=== PATIENT | female | born 1960 | race Caucasian/White ===

== ENCOUNTER 2016-06-15 12:58 | Day surgery (SDC) | payer OTHER ==
[2016-06-15] MEDS ORDERED: methylPREDNISolone SOD SUCC 125 MG/2 ML VIAL IVP ONE (13:08)
[2016-06-15] MEDS ORDERED: DIAZEPAM 5 MG TAB PO ONE (13:08)
[2016-06-15] MEDS ORDERED: NS 1,000 ML IV ONE (13:08)
[2016-06-15] MEDS ORDERED: FAMOTIDINE 20 MG/NACL 50 ML IV ONE (13:08)
[2016-06-15] MEDS ORDERED: ASPIRIN EC 325 MG TAB PO ONE (13:08)
--- NOTE | 2016-06-15 13:55 | CPEKG ---
Heart Rate: 60 RR Interval: 1000 P-R Interval: 176 QRSD Interval: 98 QT Interval: 432 QTC Interval: 432 P [place]: 21 QRS [place]: -35 T Wave [place]: 25 EKG Severity - BORDERLINE ECG - EKG Impression: SINUS RHYTHM EKG Impression: LEFT AXIS DEVIATION EKG Impression: BORDERLINE R WAVE PROGRESSION, ANTERIOR LEADS Electronically Signed By: Luis Eduardo Ruvalcaba 16-Jun-2016 16:43:02
[2016-06-15 14:00] LABS: % IMMATURE GRANULYOCYTES 0.5 % (0.0-1.1); ABSOLUTE IMMATURE GRANULOCYTES 0.04 10^3/uL (0.00-0.10); ADD DIFF? NO; ADD MORPH? NO; ADD SCAN? NO; ATYPICAL LYMPHOCYTE FLAG 0 (0-99); FRAGMENT RBC FLAG 0 (0-99); HEMATOCRIT 44.2 % (38.0-47.0); HEMOGLOBIN 14.5 g/dL (12.6-16.3); LEFT SHIFT FLG 0 (0-99); LIPEMIA HEMOLYSIS FLAG 80 (0-99); MEAN CELL HEMOGLOBIN 28.4 pg (27.9-34.1); MEAN CELL HEMOGLOBIN CONCENTR. 32.8 g/dL (32.4-36.7); MEAN CELL VOLUME 86.5 fL (81.5-99.8); MEAN PLATELET VOLUME 8.7 fL (8.7-11.7); PLATELET CLUMPS FLAG 10 (0-99); PLATELET COUNT 302 10^3/uL (150-400); RED BLOOD CELL COUNT 5.11 10^6/uL (4.18-5.33); RED CELL DISTRIBUTION WIDTH 13.2 % (11.5-15.2)
[2016-06-15 14:15] LABS: INR 0.99 (0.83-1.16)
[2016-06-15] MEDS ORDERED: HEPARIN 10,000 UNIT/10 ML MDV ONE (14:15)
[2016-06-15] MEDS ORDERED: VERAPAMIL 5 MG/2 ML VIAL ONE (14:15)
[2016-06-15] MEDS ORDERED: LIDOCAINE 1% 30 ML SDV ONE (14:15)
[2016-06-15] MEDS ORDERED: fentaNYL 100 MCG/2 ML INJ ONE (14:15)
[2016-06-15] MEDS ORDERED: MIDAZOLAM 2 MG/2 ML VIAL ONE (14:15)
[2016-06-15] MEDS ORDERED: IOPAMIDOL (ISOVUE 370) 100 ML BTL IV ONE (14:16)
[2016-06-15 14:18] LABS: ANION GAP 10 mEq/L (8-16); CALCIUM 9.5 mg/dL (8.5-10.4); CARBON DIOXIDE 26 mEq/l (22-31); CHLORIDE 106 mEq/L (97-110); CHOLESTEROL 263 mg/dL (140-220); CREATININE 0.8 mg/dL (0.6-1.0); GLOMERULAR FILTRATION RATE > 60; GLUCOSE 88 mg/dL (70-100); HIGH DENSITY LIPOPROTEIN 47 mg/dL (40-85); LDL/HDL RATIO 3.94 RATIO (1.00-3.22); LOW DENSITY LIPOPROTEIN 185 mg/dL (80-100); MAGNESIUM 2.1 mg/dL (1.6-2.3); NON-HIGH DENSITY LIPOPROTEIN 216 mg/dL (90-129); POTASSIUM 3.9 mEq/L (3.5-5.2); SODIUM 142 mEq/L (134-144); TRIGLYCERIDE 157 mg/dL (35-135); VERY LOW DENSITY LIPOPROTEINS 31 mg/dL (8-25)
--- NOTE | 2016-06-15 15:20 | PDDXCAT ---
Diagnostic Cath Note - . Date: 06/15/16 Magazine Editor: Lyly Indication: other (Ongoing symptoms of exertional dyspnea despite maximal medical therapy. Abnormal stress myocardial perfusion imaging study indicating an anterior wall defect.) - Procedure Access: right wrist Procedure: left heart catheterization, coronary angiography, left ventriculogram - Materials Left Heart Cath size: 5F Left Heart Cath materials: JL3.5, JR4.0, pigtail - Findings-Left Heart Catheterization LM: Normal. LAD: Large caliber. Single principal diagonal branch with 2 smaller diagonal branches. No obstructive lesions. Tortuous vessels. LCX: Non dominant. Single large principal obtuse marginal branch was 2 smaller obtuse marginal branches. No obstructive lesions. RCA: Dominant vessel. PDA is identified with 2 small posterolateral branches. Angiographically normal. EDP: 150/18/25 mmHg. LVEF: 60-65%. Wall motion: Normal. - Findings-Right Heart Catheterization AO: 150/ 61 mmHg. Complications: None. Estimated blood loss: <50ml Closure method: TR Band Assessment: Angiographically normal epicardial coronary arteries. Dyspnea on exertion not likely to be related to cardiovascular pathology. False-positive stress myocardial perfusion imaging study. Plan: She will be evaluated for noncardiac cause for exertional dyspnea. Intervention: None.
== END 2016-06-15 18:00 | disposition home or self-care (01) ==
LOC: FCATH 12:58
PROVIDERS: ATTEND Internal Medicine Cardiovascular Disease
PROC: 4A023N7 Measurement of Cardiac Sampling and Pressure, Left Heart, Percutaneous Approach (ICD-10-PCS; principal; 2016-06-15)
PROC: B2151ZZ Fluoroscopy of Left Heart using Low Osmolar Contrast (ICD-10-PCS; principal; 2016-06-15)
PROC: B2111ZZ Fluoroscopy of Multiple Coronary Arteries using Low Osmolar Contrast (ICD-10-PCS; principal; 2016-06-15)
DX: R07.89 Other chest pain (principal); R06.09 Other forms of dyspnea; J45.909 Unspecified asthma, uncomplicated; I10 Essential (primary) hypertension
CPT/HCPCS: 93005; 93458; C1769; J1200; J1644; J2250; J3010; Q9967

== ENCOUNTER → 2016-09-15 | Outpatient (CLI) | payer OTHER | LOC: SBRMNEURO 21:00 | PROVIDERS: ATTEND Psychiatry & Neurology Sleep Medicine | DX: G47.33 Obstructive sleep apnea (adult) (pediatric) (principal); G47.61 Periodic limb movement disorder ==